=== PATIENT | female | born 1935 | race Caucasian/White ===

== ENCOUNTER → 2017-09-05 11:56 | Outpatient (CLI) | payer MEDICARE, OTHER, SELFPAY ==
[2017-09-05 12:18] LABS: Add Manual Diff / Slide Review NO; Basophils Percent Auto 0.8 % (0-2); Eosinophils Percent Auto 0.6 % (2-4); Hematocrit 44.2 % (36-46); Hemoglobin 15.3 g/dL (12.0-16.0); Lymphocytes Percent Auto 20.6 % (25-40); Mean Corpuscular HGB Conc 34.7 % (30-36); Mean Corpuscular Hemoglobin 31.6 PG (26-34); Monocytes Percent Auto 8.5 % (3-14); Neutrophils Absolute Auto 5700 /uL (3000-5900); Neutrophils Percent Auto 69.5 % (50-75); Platelet Count 250 X10^3/uL (150-400); Red Blood Cell Count 4.86 X10^6/uL (4.0-5.2); Red Cell Distribution Width 12.8 % (11.6-14.8); White Blood Cell Count 8.2 X10^3/uL (4.5-11.0)
[2017-09-05 12:43] LABS: Alanine Aminotransferase 26 IU/L (9-52); Albumin 4.5 g/dL (3.5-5.0); Albumin Globulin Ratio 1.4 (1.0-2.8); Alkaline Phosphatase 81 U/L (38-126); Aspartate Aminotransferase 25 IU/L (14-36); BUN Creatinine Ratio 18.6 (6-22); Bilirubin Total 1.1 mg/dL (0.2-1.3); Blood Urea Nitrogen 13 mg/dL (7-17); Calcium 9.4 mg/dL (8.4-10.2); Carbon Dioxide 31 mmol/L (22-32); Chloride 99 mmol/L (98-107); Cholesterol 203 mg/dL (140-199); Estimated Glomerular Filt Rate > 60.0 mL/min (>60); Globulin 3.2 g/dL (1.7-4.1); Glucose 92 mg/dL (80-110); HDL Cholesterol 79 mg/dL (40-60); HEMOLYSIS 22 (0-50); LDL Cholesterol Calculated 104 mg/dL (<100); Sodium 140 mmol/L (137-145); Total Protein 7.7 g/dL (6.3-8.2); Triglycerides 99 mg/dL (35-150)
[2017-09-05 13:04] LABS: Thyroid Stimulating Hormone 1.56 uIU/mL (0.47-4.68)
== END ==
PROVIDERS: Internal Medicine; PCP Family Medicine; Visit Provider Family Medicine
DX: I10 Essential (primary) hypertension (principal)
CPT/HCPCS: 36415; 80053; 80061; 84443; 85025

== ENCOUNTER → 2017-09-23 14:15 | Outpatient (CLI) | payer MEDICARE, OTHER, SELFPAY ==
--- NOTE | 2017-09-23 | DI.MG.S_ITS ---
BILATERAL DIGITAL SCREENING MAMMOGRAM 3D/2D WITH CAD POST LUMPECTOMY: 09/23/2017 CLINICAL: Routine screening. Personal history of left breast cancer. Comparison is made to exams dated: 09/15/2016 mammogram, 09/11/2015 mammogram, and 09/09/2014 mammogram - [facility]. There are scattered fibroglandular elements in both breasts. Current study was also evaluated with a Computer Aided Detection (CAD) system. There is architectural distortion in the left breast middle depth inferior region seen on the mediolateral oblique view only. No other significant masses, calcifications, or other findings are seen in either breast. IMPRESSION: INCOMPLETE: NEEDS ADDITIONAL IMAGING EVALUATION The architectural distortion in the left breast is indeterminate. Additional views with possible ultrasound are recommended. This exam was interpreted at Station ID: [id number]. NOTE: For mammograms, a report in lay terms will be sent to the patient. Approximately 15% of breast malignancies will not be visualized mammographically. In the management of a palpable breast mass, a negative mammogram must not discourage biopsy of a clinically suspicious lesion. Electronically Signed By: Heather riojas/james:09/23/2017 17:05:03 letter sent: Additional Imaging Needed ACR BI-RADS Category 0: Incomplete [id number]
== END ==
PROVIDERS: PCP Family Medicine; Visit Provider Family Medicine
DX: Z12.31 Encounter for screening mammogram for malignant neoplasm of breast (principal); Z85.3 Personal history of malignant neoplasm of breast
CPT/HCPCS: 77063; 77067

== ENCOUNTER → 2017-10-05 12:35 | Outpatient (CLI) | payer MEDICARE, OTHER, SELFPAY ==
--- NOTE | 2017-10-05 12:52 | DI.MG.S_ITS ---
UNILATERAL LEFT DIGITAL DIAGNOSTIC MAMMOGRAM 3D/2D WITH ADDITIONAL VIEWS POST LUMPECTOMY: 10/05/2017 CLINICAL: Additional evaluation requested from prior study. Comparison is made to exams dated: 09/23/2017 mammogram, 09/15/2016 mammogram, and 09/11/2015 mammogram - [facility]. There are scattered fibroglandular elements in the left breast. Prior mammographic finding is no longer seen in the left breast. No significant masses, calcifications, or other findings are seen in the breast. IMPRESSION: INCOMPLETE: NEEDS ADDITIONAL IMAGING EVALUATION Questioned mammographic finding resolves on further imaging. Recommend confirmation with ultrasound. This exam was interpreted at Station ID: [id number]. NOTE: For mammograms, a report in lay terms will be sent to the patient. Approximately 15% of breast malignancies will not be visualized mammographically. In the management of a palpable breast mass, a negative mammogram must not discourage biopsy of a clinically suspicious lesion. Electronically Signed By: Clyde Martinez M.D. cj/:10/06/2017 08:48:04 ACR BI-RADS Category 0: Incomplete [id number]
--- NOTE | 2017-10-05 12:52 | DI.US.S_ITS ---
ULTRASOUND OF LEFT BREAST: 10/05/2017 CLINICAL: Patient returns today to evaluate a focal asymmetry in the left breast. Comparison is made to exams dated: 10/05/2017 mammogram, 09/23/2017 mammogram, 09/15/2016 mammogram, and 09/11/2015 mammogram - [facility]. Color flow ultrasound of the left breast was performed. Abreu scale images of the real-time examination were reviewed. Prior mammographic finding is no longer seen left breast. IMPRESSION: NEGATIVE There is no sonographic evidence of malignancy. A 1 year screening mammogram is recommended. This exam was interpreted at Station ID: [id number]. Electronically Signed By: Clyde quintanilla/james:10/05/2017 22:47:05 letter sent: Normal Exam Ultrasound BI-RADS: 1 Negative
== END ==
PROVIDERS: PCP Family Medicine; Visit Provider Family Medicine
DX: R92.8 Other abnormal and inconclusive findings on diagnostic imaging of breast (principal)
CPT/HCPCS: 76642; 77065; G0279

== ENCOUNTER 2018-07-12 07:22 | Emergency (ER) | payer MEDICARE, OTHER, SELFPAY ==
[2018-07-12 07:28] VITALS: BP 145/88; PULSE 94; RESP 18; TEMP 37; O2SAT 99; BMI 25.6
--- NOTE | 2018-07-12 08:29 | DI.RAD.S_ITS ---
PROCEDURE: XR HIP W PEL IF DONE RT 2V INDICATIONS: pain TECHNIQUE: AP pelvis with lateral view(s) of the right hip(s). COMPARISON: [facility], , PELVIS W UNILATERAL HIP RIGHT, 09/02/2014, 9:42. [facility], B[place]OL[place], [id number] W PEL IF PERFORMED, 10/04/2016, 16:00. [facility] [place], CR, XR PELVIS W LATERAL HIP LT, 12/02/2016, 13:47. FINDINGS: Bones: No fractures or dislocations. Pelvic ring appears intact. No suspicious bony lesions. Bilateral hip arthroplasties are present. Hardware appears intact. Alignment appears unchanged. Degenerative changes are present within the lower lumbar spine. Soft tissues: The visualized bowel gas pattern is normal. Radiatio soft tissue calcifications are stable. IMPRESSION: Stable appearance of bilateral hip arthroplasties as above. Dictated by: Clarisse Donohue M.D. on 07/12/2018 at 8:56 Approved by: Clarisse Donohue M.D. on 07/12/2018 at 8:59
--- NOTE | 2018-07-12 08:30 | ED.EXTPRO ---
HPI - Extremity Problem General Chief complaint: Extremity Problem,Nontraumatic Stated complaint: Pain in right hip Time Seen by Provider: 07/12/18 07:31 Source: patient and family Mode of arrival: ambulatory Limitations: no limitations History of Present Illness HPI Narrative: Patient complains of right posterior pelvic pain that started 2 days ago. Patient states that 2 days before that, she had vacuum to her whole house, and then the next day, she had gone to 2 birthday open houses, and spent a lot of time on her feet. She states that the end of that day, she was starting to notice a little pain in the right lower back/sciatic area, but when she woke up on Tuesday morning, 2 days ago, she noticed that the pain was quite bad. She states that yesterday, she had a hard time getting around because it hurts so much. Patient has a history of right hip surgery, though she cannot specify whether this was a replacement or repair. She states she has had to have the surgery twice on the hip. She does also note a history of sciatica on that side. Patient denies any fevers. No numbness or tingling. No weakness in the leg. No distinct injury. Patient denies any other complaints at this time. Related Data Home Medications Medication Instructions Recorded Confirmed multivitamin [Multiple Vitamins] 1 tab PO QDAY #0 08/26/10 02/13/18 vitamin E 800 iu PO QDAY #0 08/26/10 02/13/18 calcium carbonate-vitamin D3 1 tab PO QDAY #0 10/19/11 02/13/18 [Oyster Shell Calcium-Vit D3] ascorbic acid (vitamin C) PO QDAY #0 01/20/17 02/13/18 nifedipine [Adalat CC] 30 mg PO DAILY 07/12/18 07/12/18 tolterodine [Detrol LA] 4 mg PO DAILY 07/12/18 07/12/18 Previous Rx's Medication Instructions Recorded aspirin 81 mg PO BID #90 tab 11/23/16 clonazepam 0.5 mg tablet 0.25 mg PO BID #90 tab 10/05/17 hydrochlorothiazide 12.5 mg capsule 12.5 mg PO DAILY PRN #90 cap 05/16/18 prednisone See Rx Instructions .ROUTE 07/12/18 .COMPLEX #21 each Allergies Allergy/AdvReac Type Severity Reaction Status Date / Time ibuprofen [From ADVIL] Allergy Severe heart races Verified 07/12/18 09:52 latex Allergy Mild Blisters Verified 07/12/18 09:52 Review of Systems Constitutional Denies chills, Denies fever(s), Denies lethargy and Denies weakness Eyes Denies change in vision, Denies eye discharge, Denies irritation and Denies loss of vision ENT Ears, Nose, Mouth, and Throat: Denies change in voice, Denies neck pain and Denies sore throat Cardiovascular Denies chest pain, Denies irregular heart rhythm, Denies lightheadedness, Denies palpitations, Denies dyspnea, Denies dyspnea on exertion and Denies orthopnea Respiratory Denies cough, Denies dyspnea, Denies dyspnea on exertion and Denies wheezing Gastrointestinal Gastrointestinal: Denies abdominal pain, Denies change in bowel habits, Denies diarrhea, Denies nausea and Denies vomiting Genitourinary Denies hematuria, Denies flank pain, Denies urinary incontinence and Denies urinary urgency Musculoskeletal Denies neck pain Comments: Right hip, back, and sciatic pain. Integumentary/Breasts Denies pruritus, Denies erythema, Denies rash and Denies wounds Neurologic Denies confusion, Denies loss of vision and Denies weakness Psychiatric Denies anxiety, Denies confusion, Denies depression, Denies homicidal ideation and Denies suicidal ideation Endocrine Denies palpitations Hematologic/Lymphatic Denies easy bruising Allergic/Immunologic Denies wheezing [facility] Medical History Groin rash (Acute) Rash of perineum (Acute) Anxiety (Chronic) Fracture dislocation of shoulder joint (Acute) Osteoarthritis (Acute) Hypertension (Acute) History of breast cancer (Acute) Left ankle sprain (Acute) Essential hypertension (Chronic 12/06/10) Surgical History History of total left hip arthroplasty (Acute) Social History Smoking Status: Former smoker Social History Smoking Status: Former smoker Exam Initial Vital Signs Initial Vital Signs: Vital Signs Temperature 98.6 F 07/12/18 07:28 Pulse Rate 94 H 07/12/18 07:28 Respiratory Rate 18 07/12/18 07:28 Blood Pressure 145/88 H 07/12/18 07:28 Pulse Oximetry 99 07/12/18 07:28 Const General: cooperative and well developed Nutritional Appearance: well nourished Orientation: alert, awake, oriented x3 and not confused [facility] Head: normocephalic and atraumatic Ears: external ears normal Nose: external nose normal and No nasal discharge Face and sinus: face symmetric and No dry mucous membranes Mouth: oral mucosae normal and moist mucous membranes Teeth and gingiva: dentition normal Eyes General: appearance normal, both eyes and all related structures Eyelids: eyelids normal Conjunctivae: conjunctivae normal Sclera: sclerae normal Pupils: PERRL EOM: EOM intact bilaterally Neck Neck: normal visual inspection, trachea midline, No lymphadenopathy, No midline deformity and No JVD Lymphatic: No lymphedema Chest Chest: normal inspection of the chest Resp Effort & Inspection: normal respiratory effort, able to speak in complete sentences, no respiratory distress and no use of accessory muscles Auscultation: clear to auscultation bilaterally, no rales, no rhonchi and no wheezes Cardio Rate: regular rate Rhythm: regular rhythm Heart Sounds: no click, no gallops, no murmurs and no rubs Pulses: normal peripheral pulses GI Inspection: non-distended Palpation: soft, no hepatosplenomegaly, No guarding, No pulsatile mass and No tender Back/Spine/Pelvis Back: No CVA tenderness Cervical Spine: cervical ROM normal and No pain with cervical ROM Thoracic/Lumbar Spine: thoracic and lumbar spine normal to inspection Other: Patient has no tenderness or step-off any level of her spine. She has tenderness over the sciatic joint right just superior to this as well. Skin General: no rashes or lesions noted, No jaundice and No petechiae Neuro General: alert, oriented x3, gait normal and no focal motor deficits Speech: speech normal Extrem General: full ROM, no clubbing, cyanosis or edema, no pedal edema and no calf tenderness Psych Appearance: well kempt Mental Status: mental status grossly normal Attitude: cooperative Thought Content: normal and suicidality Judgment: judgment good Course Course Narrative: Patient was treated symptomatically with Toradol and Decadron, and was sent for x-ray series of her right hip and pelvis. X-rays were unremarkable by Radiology interpretation. Patient was found to be feeling a little better after treatment, and I felt she was stable for discharge home. I have not found any evidence of an emergent condition today. Patient is neurologically intact, and pain is located around the sacroiliac region. We have discussed home management of symptoms, as well as the usual indications for return. Orders Ordered: Discontinued Medications Dexamethasone (Decadron) 10 mg IM NOW ONE Stop: 07/12/18 08:29 Last Admin: 07/12/18 09:01 Dose: 10 mg Ketorolac Tromethamine (Toradol) 30 mg IM NOW ONE Stop: 07/12/18 08:29 Last Admin: 07/12/18 08:57 Dose: 30 mg Vital Signs - 8 hr 07/12/18 07:28 Temperature 98.6 F Pulse Rate 94 H Respiratory Rate 18 Blood Pressure 145/88 H Pulse Oximetry 99 MDM - Extremity (Nontraumatic) Medical Records Attestation: I reviewed the patient's medical records. Imaging Data Hip x-ray: Radiologist's impression: [address] [address] XRay Report Signed Patient: Tiara Angela#: [id number] : 1936Acct:[id number] Age/Sex: 83 / FDate of Service: 07/12/18 Loc: ED Accession Number: [id number] Procedure: XR hip w pel if done RT 2V Ordering Provider: Anamika Velasquez MD PROCEDURE: XR HIP W PEL IF DONE RT 2V INDICATIONS: pain TECHNIQUE: AP pelvis with lateral view(s) of the right hip(s). COMPARISON: [facility], , PELVIS W UNILATERAL HIP RIGHT, 09/02/2014, 9:42. [facility], , [id number] W PEL IF PERFORMED, 10/04/2016, 16:00. [facility], , XR PELVIS W LATERAL HIP LT, 12/02/2016, 13:47. FINDINGS: Bones: No fractures or dislocations. Pelvic ring appears intact. No suspicious bony lesions. Bilateral hip arthroplasties are present. Hardware appears intact. Alignment appears unchanged. Degenerative changes are present within the lower lumbar spine. Soft tissues: The visualized bowel gas pattern is normal. Radiatio soft tissue calcifications are stable. IMPRESSION: Stable appearance of bilateral hip arthroplasties as above. Dictated by: Clarisse Donohue M.D. on 07/12/2018 at 8:56 Approved by: Clarisse Donohue M.D. on 07/12/2018 at 8:59 Discharge Plan Departure Patient Disposition: Home Clinical Impression: Sacro-iliac pain Discharge Date/Time: 07/12/18 10:57 Interventions: ED Discharge Assessment Last Done: 07/12/18 10:57 Instructions: DI Sacroiliac Joint Dysfunction Activity Restrictions/Additional Instructions: Your x-ray series looks good--no problem with your orthopedic hardware. You have most likely strained the connection between the low spine and the pelvic bone. You may take the medications, as directed, to help with the discomfort. Generally, this condition will blow over on its own, given time. Prescriptions: New prednisone 10 mg tablets,dose pack See Rx Instructions .ROUTE .COMPLEX Qty: 21 RF: 0 No Action vitamin E 400 UNIT capsule 800 iu PO QDAY Qty: 0 RF: 0 multivitamin [Multiple Vitamins] 1 EACH tablet 1 tab PO QDAY Qty: 0 RF: 0 calcium carbonate-vitamin D3 [Oyster Shell Calcium-Vit D3] 500 MG/200 IU tablet 1 tab PO QDAY Qty: 0 RF: 0 aspirin 81 MG tablet,delayed release (DR/EC) 81 mg PO BID Qty: 90 RF: 0 ascorbic acid (vitamin C) 500 mg Tablet PO QDAY Qty: 0 RF: 0 hydrochlorothiazide 12.5 mg capsule 12.5 mg PO DAILY PRN (Reason: edema) Qty: 90 RF: 1 clonazepam 0.5 mg tablet 0.25 mg PO BID Qty: 90 RF: 2 tolterodine [Detrol LA] 4 mg capsule,extended release 24hr 4 mg PO DAILY RF: 0 nifedipine [Adalat CC] 30 mg tablet extended release 30 mg PO DAILY RF: 0 Referrals: Kana Bajwa MD [Primary Care Provider] -
--- NOTE | 2018-07-12 08:35 | ED_ITS ---
HPI - Extremity Problem General Chief complaint: Extremity Problem,Nontraumatic Stated complaint: Pain in right hip Time Seen by Provider: 07/12/18 07:31 Source: patient and family Mode of arrival: ambulatory Limitations: no limitations History of Present Illness HPI Narrative: Patient complains of right posterior pelvic pain that started 2 days ago. Patient states that 2 days before that, she had vacuum to her whole house, and then the next day, she had gone to 2 birthday open houses, and spent a lot of time on her feet. She states that the end of that day, she was starting to notice a little pain in the right lower back/sciatic area, but when she woke up on Tuesday morning, 2 days ago, she noticed that the pain was quite bad. She states that yesterday, she had a hard time getting around because it hurts so much. Patient has a history of right hip surgery, though she cannot specify whether this was a replacement or repair. She states she has had to have the surgery twice on the hip. She does also note a history of sciatica on that side. Patient denies any fevers. No numbness or tingling. No weakness in the leg. No distinct injury. Patient denies any other complaints at this time. Related Data Home Medications Medication Instructions Recorded Confirmed multivitamin [Multiple Vitamins] 1 tab PO QDAY #0 08/26/10 02/13/18 vitamin E 800 iu PO QDAY #0 08/26/10 02/13/18 calcium carbonate-vitamin D3 1 tab PO QDAY #0 10/19/11 02/13/18 [Oyster Shell Calcium-Vit D3] ascorbic acid (vitamin C) PO QDAY #0 01/20/17 02/13/18 nifedipine [Adalat CC] 30 mg PO DAILY 07/12/18 07/12/18 tolterodine [Detrol LA] 4 mg PO DAILY 07/12/18 07/12/18 Previous Rx's Medication Instructions Recorded aspirin 81 mg PO BID #90 tab 11/23/16 clonazepam 0.5 mg tablet 0.25 mg PO BID #90 tab 10/05/17 hydrochlorothiazide 12.5 mg capsule 12.5 mg PO DAILY PRN #90 cap 05/16/18 prednisone See Rx Instructions .ROUTE 07/12/18 .COMPLEX #21 each Allergies Allergy/AdvReac Type Severity Reaction Status Date / Time ibuprofen [From ADVIL] Allergy Severe heart races Verified 07/12/18 09:52 latex Allergy Mild Blisters Verified 07/12/18 09:52 Review of Systems Constitutional Denies chills, Denies fever(s), Denies lethargy and Denies weakness Eyes Denies change in vision, Denies eye discharge, Denies irritation and Denies loss of vision ENT Ears, Nose, Mouth, and Throat: Denies change in voice, Denies neck pain and Denies sore throat Cardiovascular Denies chest pain, Denies irregular heart rhythm, Denies lightheadedness, Denies palpitations, Denies dyspnea, Denies dyspnea on exertion and Denies orthopnea Respiratory Denies cough, Denies dyspnea, Denies dyspnea on exertion and Denies wheezing Gastrointestinal Gastrointestinal: Denies abdominal pain, Denies change in bowel habits, Denies diarrhea, Denies nausea and Denies vomiting Genitourinary Denies hematuria, Denies flank pain, Denies urinary incontinence and Denies urinary urgency Musculoskeletal Denies neck pain Comments: Right hip, back, and sciatic pain. Integumentary/Breasts Denies pruritus, Denies erythema, Denies rash and Denies wounds Neurologic Denies confusion, Denies loss of vision and Denies weakness Psychiatric Denies anxiety, Denies confusion, Denies depression, Denies homicidal ideation and Denies suicidal ideation Endocrine Denies palpitations Hematologic/Lymphatic Denies easy bruising Allergic/Immunologic Denies wheezing [facility] Medical History Groin rash (Acute) Rash of perineum (Acute) Anxiety (Chronic) Fracture dislocation of shoulder joint (Acute) Osteoarthritis (Acute) Hypertension (Acute) History of breast cancer (Acute) Left ankle sprain (Acute) Essential hypertension (Chronic 12/06/10) Surgical History History of total left hip arthroplasty (Acute) Social History Smoking Status: Former smoker Social History Smoking Status: Former smoker Exam Initial Vital Signs Initial Vital Signs: Vital Signs Temperature 98.6 F 07/12/18 07:28 Pulse Rate 94 H 07/12/18 07:28 Respiratory Rate 18 07/12/18 07:28 Blood Pressure 145/88 H 07/12/18 07:28 Pulse Oximetry 99 07/12/18 07:28 Const General: cooperative and well developed Nutritional Appearance: well nourished Orientation: alert, awake, oriented x3 and not confused [facility] Head: normocephalic and atraumatic Ears: external ears normal Nose: external nose normal and No nasal discharge Face and sinus: face symmetric and No dry mucous membranes Mouth: oral mucosae normal and moist mucous membranes Teeth and gingiva: dentition normal Eyes General: appearance normal, both eyes and all related structures Eyelids: eyelids normal Conjunctivae: conjunctivae normal Sclera: sclerae normal Pupils: PERRL EOM: EOM intact bilaterally Neck Neck: normal visual inspection, trachea midline, No lymphadenopathy, No midline deformity and No JVD Lymphatic: No lymphedema Chest Chest: normal inspection of the chest Resp Effort & Inspection: normal respiratory effort, able to speak in complete sentences, no respiratory distress and no use of accessory muscles Auscultation: clear to auscultation bilaterally, no rales, no rhonchi and no wheezes Cardio Rate: regular rate Rhythm: regular rhythm Heart Sounds: no click, no gallops, no murmurs and no rubs Pulses: normal peripheral pulses GI Inspection: non-distended Palpation: soft, no hepatosplenomegaly, No guarding, No pulsatile mass and No tender Back/Spine/Pelvis Back: No CVA tenderness Cervical Spine: cervical ROM normal and No pain with cervical ROM Thoracic/Lumbar Spine: thoracic and lumbar spine normal to inspection Other: Patient has no tenderness or step-off any level of her spine. She has tenderness over the sciatic joint right just superior to this as well. Skin General: no rashes or lesions noted, No jaundice and No petechiae Neuro General: alert, oriented x3, gait normal and no focal motor deficits Speech: speech normal Extrem General: full ROM, no clubbing, cyanosis or edema, no pedal edema and no calf tenderness Psych Appearance: well kempt Mental Status: mental status grossly normal Attitude: cooperative Thought Content: normal and suicidality Judgment: judgment good Course Course Narrative: Patient was treated symptomatically with Toradol and Decadron, and was sent for x-ray series of her right hip and pelvis. X-rays were unremarkable by Radiology interpretation. Patient was found to be feeling a little better after treatment, and I felt she was stable for discharge home. I have not found any evidence of an emergent condition today. Patient is neurologically intact, and pain is located around the sacroiliac region. We have discussed home management of symptoms, as well as the usual indications for return. Orders Ordered: Discontinued Medications Dexamethasone (Decadron) 10 mg IM NOW ONE Stop: 07/12/18 08:29 Last Admin: 07/12/18 09:01 Dose: 10 mg Ketorolac Tromethamine (Toradol) 30 mg IM NOW ONE Stop: 07/12/18 08:29 Last Admin: 07/12/18 08:57 Dose: 30 mg Vital Signs - 8 hr 07/12/18 07:28 Temperature 98.6 F Pulse Rate 94 H Respiratory Rate 18 Blood Pressure 145/88 H Pulse Oximetry 99 MDM - Extremity (Nontraumatic) Medical Records Attestation: I reviewed the patient's medical records. Imaging Data Hip x-ray: Radiologist's impression: [address] [address] XRay Report Signed Patient: Tiara Angela#: [id number] : 1936Acct:[id number] Age/Sex: 83 / FDate of Service: 07/12/18 Loc: ED Accession Number: [id number] Procedure: XR hip w pel if done RT 2V Ordering Provider: Anamika Velasquez MD PROCEDURE: XR HIP W PEL IF DONE RT 2V INDICATIONS: pain TECHNIQUE: AP pelvis with lateral view(s) of the right hip(s). COMPARISON: [facility], , PELVIS W UNILATERAL HIP RIGHT, 09/02/2014, 9:42. [facility], , [id number] W PEL IF PERFORMED, 10/04/2016, 16:00. [facility], , XR PELVIS W LATERAL HIP LT, 12/02/2016, 13:47. FINDINGS: Bones: No fractures or dislocations. Pelvic ring appears intact. No suspicious bony lesions. Bilateral hip arthroplasties are present. Hardware appears intact. Alignment appears unchanged. Degenerative changes are present within the lower lumbar spine. Soft tissues: The visualized bowel gas pattern is normal. Radiatio soft tissue calcifications are stable. IMPRESSION: Stable appearance of bilateral hip arthroplasties as above. Dictated by: Clarisse Donohue M.D. on 07/12/2018 at 8:56 Approved by: Clarisse Donohue M.D. on 07/12/2018 at 8:59 Discharge Plan Departure Patient Disposition: Home Clinical Impression: Sacro-iliac pain Discharge Date/Time: 07/12/18 10:57 Interventions: ED Discharge Assessment Last Done: 07/12/18 10:57 Instructions: DI Sacroiliac Joint Dysfunction Activity Restrictions/Additional Instructions: Your x-ray series looks good--no problem with your orthopedic hardware. You have most likely strained the connection between the low spine and the pelvic bone. You may take the medications, as directed, to help with the discomfort. Generally, this condition will blow over on its own, given time. Prescriptions: New prednisone 10 mg tablets,dose pack See Rx Instructions .ROUTE .COMPLEX Qty: 21 RF: 0 No Action vitamin E 400 UNIT capsule 800 iu PO QDAY Qty: 0 RF: 0 multivitamin [Multiple Vitamins] 1 EACH tablet 1 tab PO QDAY Qty: 0 RF: 0 calcium carbonate-vitamin D3 [Oyster Shell Calcium-Vit D3] 500 MG/200 IU tablet 1 tab PO QDAY Qty: 0 RF: 0 aspirin 81 MG tablet,delayed release (DR/EC) 81 mg PO BID Qty: 90 RF: 0 ascorbic acid (vitamin C) 500 mg Tablet PO QDAY Qty: 0 RF: 0 hydrochlorothiazide 12.5 mg capsule 12.5 mg PO DAILY PRN (Reason: edema) Qty: 90 RF: 1 clonazepam 0.5 mg tablet 0.25 mg PO BID Qty: 90 RF: 2 tolterodine [Detrol LA] 4 mg capsule,extended release 24hr 4 mg PO DAILY RF: 0 nifedipine [Adalat CC] 30 mg tablet extended release 30 mg PO DAILY RF: 0 Referrals: Kana Bajwa MD [Primary Care Provider] -
[2018-07-12] MEDS: KETOROLAC 60 MG/2 ML VIAL 30 MG IM (08:57)
[2018-07-12] MEDS: DEXAMETHASONE 10 MG/ML VIAL IM (09:01)
[2018-07-12 10:00] VITALS: BP 138/68; PULSE 87; RESP 14; TEMP 37; O2SAT 97
[2018-07-12 10:38] VITALS: BP 123/63; PULSE 93; RESP 20; O2SAT 100
--- NOTE | 2018-07-17 18:04 | CM.SWNOTE ---
Follow up note Routine emergency room follow up call. No answer, but name identified on voice mail. Informed that it was the ED with a follow up phone call. Tried the cell phone also, but no answer.
== END 2018-07-12 10:57 | disposition home or self-care (01) ==
PROVIDERS: Emergency Provider Emergency Medicine; PCP Family Medicine
DX: M53.3 Sacrococcygeal disorders, not elsewhere classified (principal)
CPT/HCPCS: 73502; 99283; J1100; J1885

== ENCOUNTER → 2018-07-14 09:11 | Outpatient (CLI) | payer MEDICARE, OTHER, SELFPAY ==
[2018-07-14 10:06] LABS: Add Manual Diff / Slide Review NO; Basophils Absolute Auto 0 /uL (0-100); Basophils Percent Auto 0.4 % (0-2); Eosinophils Absolute Auto 0 /uL (0-450); Eosinophils Percent Auto 0.5 % (2-4); Hematocrit 42.2 % (36-46); Hemoglobin 14.3 g/dL (12.0-16.0); Lymphocytes Absolute Auto 2800 /uL (1100-4500); Lymphocytes Percent Auto 31.3 % (25-40); Mean Corpuscular Hemoglobin 31.3 PG (26-34); Monocytes Absolute Auto 900 /uL (0-900); Monocytes Percent Auto 10.3 % (3-14); Neutrophils Absolute Auto 5100 /uL (1500-7000); Neutrophils Percent Auto 57.5 % (50-75); Platelet Count 288 X10^3/uL (150-400); Red Blood Cell Count 4.58 X10^6/uL (4.0-5.2); Red Cell Distribution Width 13.8 % (11.6-14.8); White Blood Cell Count 8.8 X10^3/uL (4.5-11.0)
[2018-07-14 10:13] LABS: Alanine Aminotransferase 17 IU/L (9-52); Albumin 4.2 g/dL (3.5-5.0); Albumin Globulin Ratio 1.3 (1.0-2.8); Alkaline Phosphatase 69 U/L (38-126); Aspartate Aminotransferase 22 IU/L (14-36); Bilirubin Total 0.6 mg/dL (0.2-1.3); Blood Urea Nitrogen 21 mg/dL (7-17); Calcium 9.2 mg/dL (8.4-10.2); Carbon Dioxide 30 mmol/L (22-32); Chloride 100 mmol/L (98-107); Cholesterol 178 mg/dL (140-199); Estimated Glomerular Filt Rate > 60.0 mL/min (>60); Globulin 3.2 g/dL (1.7-4.1); Glucose 85 mg/dL (80-110); HDL Cholesterol 94 mg/dL (40-60); HEMOLYSIS < 15 (0-50); LDL Cholesterol Calculated 70 mg/dL (<100); Potassium 3.2 mmol/L (3.4-5.1); Sodium 141 mmol/L (137-145); Total Protein 7.4 g/dL (6.3-8.2); Triglycerides 71 mg/dL (35-150)
== END ==
PROVIDERS: PCP Family Medicine; Visit Provider Family Medicine
DX: I10 Essential (primary) hypertension (principal); Z00.00 Encounter for general adult medical examination without abnormal findings; Z13.6 Encounter for screening for cardiovascular disorders
CPT/HCPCS: 36415; 80053; 80061; 85025

== ENCOUNTER → 2018-07-24 15:37 | Outpatient (CLI) | payer MEDICARE, OTHER, SELFPAY ==
--- NOTE | 2018-07-24 15:41 | DI.MRI.S_ITS ---
PROCEDURE: MR LUMBAR SPINE WO CON INDICATIONS: Right sided low back/SI joint pain TECHNIQUE: Noncontrast sagittal T1 spin echo and T2 fast echo, sagittal STIR, axial T1 and T2 fast spin echo through the lumbar spine. Axial and oblique coronal T1 spin echo and STIR through the sacrum. In cases with scoliosis, additional coronal T2 fast spin echo may be performed. COMPARISON: [facility], , L-SPINE 2-3 VIEWS, 10/04/2016, 16:00. FINDINGS: Image quality: Excellent. Alignment and Curvature: There is mild L4-L5 anterolisthesis secondary to facet hypertrophy. Bone Marrow: Marrow is of normal overall signal. No acute vertebral body compression fractures. No sacral fractures. Spinal Cord: Conus medullaris terminates at the L1 level. Visualized cord demonstrates normal signal and size. Paraspinous Soft Tissues: No paravertebral masses. L1-L2: Loss of the signal. No central stenosis. No neural foraminal narrowing. No neural impingement. L2-L3: Loss of disc signal. Mild, diffuse disc bulge. No central stenosis. No neural foraminal narrowing. No neural impingement. L3-L4: Loss of the signal. Mild, diffuse disc bulge. Moderate facet and moderate ligamentum flavum hypertrophy. Moderate narrowing of the central canal. Moderate to severe right and mild left neural foraminal narrowing with slight compression of the exiting left L3 nerve root. L4-L5: Loss of disc signal and height. Mild, diffuse disc bulge. Severe bilateral facet hypertrophy. Moderate narrowing of the central canal. Mild to moderate bilateral neural foraminal narrowing. No neural impingement. L5-S1: Disc has a normal appearance. Moderate bilateral facet hypertrophy. No central stenosis. No neural foraminal narrowing. No neural impingement. Sacrum: Sacral neural foramina appear normal throughout. Superior to the piriformis muscles, the pre-plexal structures appear normal, including the lumbosacral trunk and S1 root. Just anterior to the piriformis muscles, the sacral plexus proper demonstrates normal morphology (lumbosacral trunk, S1 to S3 nerve roots). Inferior to the piriformis muscles, the sciatic nerves appear normal. Small right S3 Tarlov cyst. IMPRESSION: 1. Grade 1 L4-L5 degenerative spondylolisthesis. 2. Multilevel degenerative disc disease. 3. Multilevel facet arthropathy. 4. Moderate L3-L4 and L4-L5 central canal narrowing. 5. Moderate to severe right and mild left L3-L4 neural foraminal narrowing. Mild to moderate bilateral L4-L5 neural foraminal narrowing. 6. Slight compression of the exiting right L3 nerve root secondary to right L3-L4 neural foraminal narrowing. Please correlate with clinical data. Dictated by: Jessica Rowe MD, PhD on 07/24/2018 at 17:20 Approved by: Jessica Rowe MD, PhD on 07/24/2018 at 17:25
== END ==
PROVIDERS: PCP Family Medicine; Visit Provider Family Medicine
DX: M53.3 Sacrococcygeal disorders, not elsewhere classified (principal); M54.5 Low back pain; M43.16 Spondylolisthesis, lumbar region; M51.36 Other intervertebral disc degeneration, lumbar region; M48.061 Spinal stenosis, lumbar region without neurogenic claudication; M47.816 Spondylosis without myelopathy or radiculopathy, lumbar region
CPT/HCPCS: 72148

== ENCOUNTER → 2018-10-11 11:17 | Outpatient (CLI) | payer MEDICARE, OTHER, SELFPAY ==
--- NOTE | 2018-10-11 | DI.MG.S_ITS ---
BILATERAL DIGITAL SCREENING MAMMOGRAM 3D/2D WITH CAD: 10/11/2018 CLINICAL: Routine screening. Personal history of left breast cancer. Post left lumpectomy and radiation therapy. Comparison is made to exams dated: 10/05/2017 mammogram, 09/23/2017 mammogram, 09/15/2016 mammogram, and 09/11/2015 mammogram - [facility]. There are scattered fibroglandular elements in both breasts. Current study was also evaluated with a Computer Aided Detection (CAD) system. There are benign post operative findings in the left breast. No significant masses, calcifications, or other findings are seen in either breast. There has been no significant interval change. IMPRESSION: There is no mammographic evidence of malignancy. A 1 year screening mammogram is recommended. This exam was interpreted at Station ID: [id number]. NOTE: For mammograms, a report in lay terms will be sent to the patient. Approximately 15% of breast malignancies will not be visualized mammographically. In the management of a palpable breast mass, a negative mammogram must not discourage biopsy of a clinically suspicious lesion. Electronically Signed By: Tamika aranda/james:10/11/2018 11:53:41 letter sent: Normal Exam ACR BI-RADS Category 2: Benign Finding(s) 3342F
== END ==
PROVIDERS: PCP Family Medicine; Visit Provider Family Medicine
DX: Z12.31 Encounter for screening mammogram for malignant neoplasm of breast (principal); Z85.3 Personal history of malignant neoplasm of breast
CPT/HCPCS: 77063; 77067

== ENCOUNTER → 2019-04-19 11:29 | Outpatient (CLI) | payer MEDICARE, OTHER, SELFPAY ==
--- NOTE | 2019-04-19 11:31 | DI.US.S_ITS ---
PROCEDURE: US PELVIC COMPLETE INDICATIONS: PROBLEMS WITH URINATING AND URINARY RETENTION TECHNIQUE: Real-time scanning was performed of the pelvic organs, with image documentation. Additional endovaginal scanning was necessary due to incomplete visualization of the adnexal and endometrial structures by transabdominal scanning. COMPARISON: None. FINDINGS: Transabdominal scanning: Limited scanning through the kidneys shows no hydronephrosis. No pathologic free abdominal or pelvic fluid. Endovaginal scanning: Uterus: Surgically absent. Ovaries: The right ovary is not seen. The left ovary measures 1.6 x 1.2 x 0.7 cm. IMPRESSION: No significant abnormality is seen, status post hysterectomy. Dictated by: Bruce Coffman M.D. on 04/19/2019 at 13:02 Approved by: Bruce Coffman M.D. on 04/19/2019 at 13:03
== END ==
PROVIDERS: PCP Family Medicine; Referring Provider Family Medicine; Visit Provider Family Medicine
DX: R33.9 Retention of urine, unspecified (principal); Z90.710 Acquired absence of both cervix and uterus
CPT/HCPCS: 76830; 76856

== ENCOUNTER → 2019-08-31 09:36 | Outpatient (CLI) | payer MEDICARE, OTHER, SELFPAY ==
[2019-08-31 12:39] LABS: Add Manual Diff / Slide Review NO; Basophils Absolute Auto 0 /uL (0-100); Basophils Percent Auto 0.5 % (0-2); Eosinophils Absolute Auto 0 /uL (0-450); Eosinophils Percent Auto 0.9 % (2-4); Hematocrit 41.1 % (36-46); Hemoglobin 14.4 g/dL (12.0-16.0); Lymphocytes Absolute Auto 1500 /uL (1100-4500); Mean Corpuscular Hemoglobin 32.1 PG (26-34); Mean Corpuscular Volume 91.7 fL (80-100); Monocytes Absolute Auto 500 /uL (0-900); Monocytes Percent Auto 9.3 % (3-14); Neutrophils Absolute Auto 3000 /uL (1500-7000); Neutrophils Percent Auto 59.3 % (50-75); Platelet Count 257 X10^3/uL (150-400); Red Blood Cell Count 4.48 X10^6/uL (4.0-5.2); Red Cell Distribution Width 13.1 % (11.6-14.8); White Blood Cell Count 5.1 X10^3/uL (4.5-11.0)
[2019-08-31 13:17] LABS: Alanine Aminotransferase 17 IU/L (<35); Albumin 4.5 g/dL (3.5-5.0); Albumin Globulin Ratio 1.5 (1.0-2.8); Alkaline Phosphatase 75 U/L (38-126); Aspartate Aminotransferase 30 IU/L (14-36); BUN Creatinine Ratio 20.9 (6-22); Bilirubin Total 0.8 mg/dL (0.2-1.3); Blood Urea Nitrogen 14 mg/dL (7-17); Calcium 9.8 mg/dL (8.4-10.2); Carbon Dioxide 27 mmol/L (22-32); Chloride 104 mmol/L (98-107); Cholesterol 196 mg/dL (140-199); Estimated Glomerular Filt Rate > 60.0 mL/min (>60); Glucose 88 mg/dL (80-110); HDL Cholesterol 95 mg/dL (40-60); HEMOLYSIS < 15 (0-50); LDL Cholesterol Calculated 90 mg/dL (<100); Potassium 4.3 mmol/L (3.4-5.1); Sodium 141 mmol/L (137-145); Total Protein 7.5 g/dL (6.3-8.2); Triglycerides 53 mg/dL (35-150)
== END ==
PROVIDERS: PCP Family Medicine; Referring Provider Family Medicine; Visit Provider Family Medicine
DX: Z00.00 Encounter for general adult medical examination without abnormal findings (principal); I10 Essential (primary) hypertension
CPT/HCPCS: 36415; 80053; 80061; 85025

== ENCOUNTER → 2019-10-25 11:05 | Outpatient (CLI) | payer MEDICARE, OTHER, SELFPAY ==
--- NOTE | 2019-10-25 11:08 | DI.MG.S_ITS ---
BILATERAL DIGITAL SCREENING MAMMOGRAM 3D/2D WITH CAD POST LUMPECTOMY: 10/25/2019 CLINICAL: Routine screening. Personal history of left breast cancer. Comparison is made to exams dated: 10/11/2018 mammogram, 09/23/2017 mammogram, 09/15/2016 mammogram, 09/11/2015 mammogram, and 09/09/2014 mammogram - [facility]. There are scattered fibroglandular elements in both breasts. Current study was also evaluated with a Computer Aided Detection (CAD) system. There are benign post operative findings in the left breast. No significant masses, calcifications, or other findings are seen in either breast. There has been no significant interval change. IMPRESSION: BENIGN There is no mammographic evidence of malignancy. A 1 year screening mammogram is recommended. This exam was interpreted at Station ID: [id number]. NOTE: For mammograms, a report in lay terms will be sent to the patient. Approximately 15% of breast malignancies will not be visualized mammographically. In the management of a palpable breast mass, a negative mammogram must not discourage biopsy of a clinically suspicious lesion. Electronically Signed By: Dwaine calloway/james:10/25/2019 15:17:26 letter sent: Normal Exam ACR BI-RADS Category 2: Benign Finding(s) 3342F
== END ==
PROVIDERS: PCP Family Medicine; Referring Provider Family Medicine; Visit Provider Family Medicine
DX: Z12.31 Encounter for screening mammogram for malignant neoplasm of breast (principal); Z85.3 Personal history of malignant neoplasm of breast
CPT/HCPCS: 77063; 77067

== ENCOUNTER → 2020-02-21 10:16 | Outpatient (CLI) | payer MEDICARE, OTHER, SELFPAY ==
[2020-02-21 11:16] LABS: Creatinine Urine Random 93.4 mg/dL
[2020-02-21 11:18] LABS: Alanine Aminotransferase 17 IU/L (<35); Albumin 4.6 g/dL (3.5-5.0); Albumin Globulin Ratio 1.2 (1.0-2.8); Alkaline Phosphatase 75 U/L (38-126); Aspartate Aminotransferase 30 IU/L (14-36); BUN Creatinine Ratio 18.3 (6-22); Bilirubin Total 0.6 mg/dL (0.2-1.3); Blood Urea Nitrogen 13 mg/dL (7-17); Calcium 9.8 mg/dL (8.4-10.2); Carbon Dioxide 32 mmol/L (22-32); Chloride 103 mmol/L (98-107); Cholesterol 218 mg/dL (140-199); Estimated Glomerular Filt Rate > 60.0 mL/min (>60); Globulin 3.7 g/dL (1.7-4.1); Glucose 107 mg/dL (80-110); HDL Cholesterol 97 mg/dL (40-60); HEMOLYSIS < 15 (0-50); LDL Cholesterol Calculated 106 mg/dL (<100); Potassium 3.9 mmol/L (3.4-5.1); Sodium 139 mmol/L (137-145); Total Protein 8.3 g/dL (6.3-8.2); Triglycerides 76 mg/dL (35-150)
[2020-02-21 11:19] LABS: Microalbumi Creatinin Ratio Ur 50.3 ug/mg CR (<30); Microalbumin Urine Random 4.7 mg/dL (0-1.6)
== END ==
PROVIDERS: PCP Family Medicine; Referring Provider Family Medicine; Visit Provider Family Medicine
DX: I10 Essential (primary) hypertension (principal)
CPT/HCPCS: 36415; 80053; 80061; 82043; 82570

== ENCOUNTER → 2020-03-27 16:00 | Outpatient (CLI) | payer MEDICARE, OTHER, SELFPAY ==
--- NOTE | 2020-03-27 16:05 | DI.RAD.S_ITS ---
PROCEDURE: XR KNEE RT 3V INDICATIONS: right knee pain TECHNIQUE: 3 views of the knee were acquired. COMPARISON: None. FINDINGS: Bones: No fractures or dislocations. No suspicious bony lesions. Tricompartmental knee joint space narrowing with periarticular osteophyte formation. Soft tissues: Small joint effusion. No suspicious soft tissue calcifications. Chondrocalcinosis. Vascular calcifications indicate atherosclerosis. IMPRESSION: 1. Mild tricompartmental knee joint degeneration. 2. Chondrocalcinosis. Differential diagnosis includes but is not limited to hemochromatosis, hyperparathyroidism and CPPD. Dictated by: Chandler Rendon [facility] Interpreted: Christian Oakes MD on 03/27/2020 at 16:57 Approved by: Christian Oakes M.D. on 03/31/2020 at 16:36
== END ==
PROVIDERS: PCP Family Medicine; Referring Provider Registered Nurse; Visit Provider Registered Nurse
DX: M25.561 Pain in right knee (principal); M17.11 Unilateral primary osteoarthritis, right knee; M11.261 Other chondrocalcinosis, right knee
CPT/HCPCS: 73562

== ENCOUNTER → 2020-04-10 14:38 | Outpatient (CLI) | payer MEDICARE, SELFPAY ==
[2020-04-10] MEDS: COVID-19 VACC #1, MRNA(MOD) 100 MCG/0.5 ML VIAL IM (14:43)
== END ==
PROVIDERS: PCP Family Medicine; Visit Provider Internal Medicine
DX: Z23 Encounter for immunization (principal)
CPT/HCPCS: 0011A; 91301

== ENCOUNTER → 2020-05-08 14:37 | Outpatient (CLI) | payer MEDICARE, SELFPAY ==
[2020-05-08] MEDS: COVID-19 VACC #2, MRNA(MOD) 100 MCG/0.5 ML VIAL IM (14:47)
== END ==
PROVIDERS: PCP Family Medicine; Visit Provider Internal Medicine
DX: Z23 Encounter for immunization (principal)
CPT/HCPCS: 0012A; 91301

== ENCOUNTER → 2020-10-28 11:10 | Outpatient (CLI) | payer MEDICARE, SELFPAY ==
--- NOTE | 2020-10-28 | DI.MG.S_ITS ---
BILATERAL DIGITAL SCREENING MAMMOGRAM 3D/2D WITH CAD: 10/28/2020 CLINICAL: Routine screening. Breast cancer. Comparison is made to exams dated: 10/25/2019 mammogram, 10/11/2018 mammogram, 10/05/2017 mammogram, 09/23/2017 mammogram, 09/15/2016 mammogram, and 09/11/2015 mammogram - [facility]. There are scattered fibroglandular elements in both breasts. Current study was also evaluated with a Computer Aided Detection (CAD) system. There are benign post operative findings in the left breast. No significant masses, calcifications, or other findings are seen in either breast. There has been no significant interval change. IMPRESSION: BENIGN There is no mammographic evidence of malignancy. A 1 year screening mammogram is recommended. This exam was interpreted at Station ID: [id number]. NOTE: For mammograms, a report in lay terms will be sent to the patient. Approximately 15% of breast malignancies will not be visualized mammographically. In the management of a palpable breast mass, a negative mammogram must not discourage biopsy of a clinically suspicious lesion. Electronically Signed By: Dwaine calloway/james:10/28/2020 11:36:13 letter sent: Normal Exam ACR BI-RADS Category 2: Benign Finding(s) 3342F
== END ==
PROVIDERS: PCP Family Medicine; Referring Provider Family Medicine; Visit Provider Family Medicine
DX: Z12.31 Encounter for screening mammogram for malignant neoplasm of breast (principal); Z85.3 Personal history of malignant neoplasm of breast
CPT/HCPCS: 77063; 77067

== ENCOUNTER → 2021-01-19 13:58 | Outpatient (CLI) | payer MEDICARE, OTHER, SELFPAY ==
--- NOTE | 2021-01-19 13:59 | DI.RAD.S_ITS ---
PROCEDURE: XR HIP W PEL IF DONE RT 2V INDICATIONS: chronic right hip pain TECHNIQUE: AP pelvis with lateral view(s) of the right hip(s). COMPARISON: [facility], , XR HIP W PEL IF DONE RT 2V, 07/12/2018, 8:33. FINDINGS: Bones: Unchanged alignment of bilateral hip arthroplasties with long femoral stem component. Hardware appears intact. No evidence of hardware loosening or failure. Lumbar spondylosis and facet disease as before. Soft tissues: Scattered vascular and dystrophic calcifications seen bilaterally. Pubic symphysis chondrocalcinosis. IMPRESSION: Unchanged alignment of bilateral hip arthroplasties. Dictated by: Acosta Munoz M.D. on 01/19/2021 at 16:02 Approved by: Acosta Munoz M.D. on 01/19/2021 at 16:04
== END ==
PROVIDERS: PCP Family Medicine; Referring Provider Family Medicine; Visit Provider Family Medicine
DX: M25.551 Pain in right hip (principal); M16.0 Bilateral primary osteoarthritis of hip; G89.29 Other chronic pain
CPT/HCPCS: 73502

== ENCOUNTER → 2021-02-23 09:27 | Outpatient (CLI) | payer MEDICARE, OTHER, SELFPAY ==
[2021-02-23 14:07] LABS: Alanine Aminotransferase 16 IU/L (<35); Albumin 4.4 g/dL (3.5-5.0); Albumin Globulin Ratio 1.5 (1.0-2.8); Alkaline Phosphatase 64 U/L (38-126); Aspartate Aminotransferase 28 IU/L (14-36); BUN Creatinine Ratio 18.3 (6-22); Bilirubin Total 0.6 mg/dL (0.2-1.3); Blood Urea Nitrogen 13 mg/dL (7-17); Calcium 9.6 mg/dL (8.4-10.2); Carbon Dioxide 27 mmol/L (22-32); Chloride 106 mmol/L (98-107); Cholesterol 203 mg/dL (140-199); Estimated Glomerular Filt Rate > 60.0 mL/min (>60); Glucose 89 mg/dL (80-110); HEMOLYSIS < 15 (0-50); Potassium 3.9 mmol/L (3.4-5.1); Sodium 141 mmol/L (137-145); Total Protein 7.4 g/dL (6.3-8.2); Triglycerides 42 mg/dL (35-150)
[2021-02-23 14:25] LABS: HDL Cholesterol 113 mg/dL (40-60); LDL Cholesterol Calculated 82 mg/dL (<100)
[2021-02-23 16:51] LABS: Creatinine Urine Random 15.7 mg/dL
[2021-02-23 16:52] LABS: Microalbumi Creatinin Ratio Ur 38.2 ug/mg CR (<30); Microalbumin Urine Random 0.6 mg/dL (0-1.6)
== END ==
PROVIDERS: PCP Family Medicine; Referring Provider Family Medicine; Visit Provider Family Medicine
DX: E78.5 Hyperlipidemia, unspecified (principal); I10 Essential (primary) hypertension
CPT/HCPCS: 36415; 80053; 80061; 82043; 82570

== ENCOUNTER → 2021-06-18 09:17 | Outpatient (CLI) | payer MEDICARE, OTHER, SELFPAY ==
--- NOTE | 2021-06-18 09:22 | DI.RAD.S_ITS ---
PROCEDURE: XR KNEE LT 3V INDICATIONS: chronic left knee pain TECHNIQUE: Three views of the left knee were performed. There are tricompartmental degenerative changes with medial joint space narrowing and tricompartmental osteophytes. There are calcifications within the joint space consistent with chondrocalcinosis. COMPARISON: [facility], , XR KNEE RT 3V, 03/27/2020, 16:06. FINDINGS: Bones: No fractures or dislocations. No suspicious bony lesions. Soft tissues: No joint effusion. No suspicious soft tissue calcifications. Vasculature demonstrates atherosclerotic calcifications. IMPRESSION: 1. Tricompartmental degenerative changes consistent with osteoarthritis. 2. Chondrocalcinosis. Differential diagnosis includes but is not limited to hemochromatosis, hyperparathyroidism, and CPPD. Dictated by: Axel Teague M.D. on 06/18/2021 at 12:33 Approved by: Axel Teague M.D. on 06/18/2021 at 12:35
== END ==
PROVIDERS: PCP Family Medicine; Referring Provider Family Medicine; Visit Provider Family Medicine
DX: M25.562 Pain in left knee (principal); M11.262 Other chondrocalcinosis, left knee; M17.11 Unilateral primary osteoarthritis, right knee; G89.29 Other chronic pain
CPT/HCPCS: 73562

== ENCOUNTER → 2021-11-05 12:53 | Outpatient (CLI) | payer MEDICARE, OTHER, SELFPAY ==
--- NOTE | 2021-11-05 | DI.MG.S_ITS ---
BILATERAL DIGITAL SCREENING MAMMOGRAM 3D/2D WITH CAD: 11/05/2021 CLINICAL: Routine screening. Personal history of left breast cancer. Comparison is made to exams dated: 10/28/2020 mammogram, 10/25/2019 mammogram, and 10/11/2018 mammogram - [facility]. There are scattered areas of fibroglandular density in both breasts (category b / 25%-50% glandular tissue). Current study was also evaluated with a Computer Aided Detection (CAD) system. There are benign vascular calcifications in both breasts. There also are benign post operative findings in the left breast. No significant masses, calcifications, or other findings are seen in either breast. There has been no significant interval change. IMPRESSION: BENIGN There is no mammographic evidence of malignancy. A 1 year screening mammogram is recommended. This exam was interpreted at Station ID: [id number]. NOTE: For mammograms, a report in lay terms will be sent to the patient. Approximately 15% of breast malignancies will not be visualized mammographically. In the management of a palpable breast mass, a negative mammogram must not discourage biopsy of a clinically suspicious lesion. Electronically Signed By: Heather riojas/james:11/05/2021 15:09:36 letter sent: Normal Exam ACR BI-RADS Category 2: Benign Finding(s) [id number]
== END ==
PROVIDERS: PCP Family Medicine; Referring Provider Family Medicine; Visit Provider Family Medicine
DX: Z12.31 Encounter for screening mammogram for malignant neoplasm of breast (principal); Z85.3 Personal history of malignant neoplasm of breast
CPT/HCPCS: 77063; 77067

== ENCOUNTER → 2022-05-06 16:02 | Outpatient (CLI) | payer MEDICARE, OTHER, SELFPAY ==
--- NOTE | 2022-05-06 16:04 | DI.RAD.S_ITS ---
PROCEDURE: XR SHOULDER RT MIN 2V INDICATIONS: right shoulder pain TECHNIQUE: 3 views of the shoulder were acquired. COMPARISON: [facility], , SHOULDER 1 VIEW RIGHT, 01/03/2015, 14:39. FINDINGS: Bones: Acromioclavicular degenerative changes. Old healed proximal humeral fracture. Right lung apex clear Soft tissues: No suspicious soft tissue calcifications. IMPRESSION: Degenerative changes and old healed proximal humeral fracture Approved by: Shahid Cottrell M.D. on 05/06/2022 at 18:56
[2022-05-06 17:10] LABS: Add Manual Diff / Slide Review NO; Basophils Absolute Auto 0 /uL (0-100); Basophils Percent Auto 0.4 % (0-2); Eosinophils Absolute Auto 100 /uL (0-450); Eosinophils Percent Auto 1.7 % (2-4); Hematocrit 43.6 % (36-46); Hemoglobin 14.8 g/dL (12.0-16.0); Lymphocytes Absolute Auto 1900 /uL (1100-4500); Lymphocytes Percent Auto 34.4 % (25-40); Mean Corpuscular HGB Conc 34.1 % (30-36); Mean Corpuscular Hemoglobin 31.1 PG (26-34); Mean Corpuscular Volume 91.2 fL (80-100); Monocytes Absolute Auto 500 /uL (0-900); Monocytes Percent Auto 9.6 % (3-14); Neutrophils Absolute Auto 2900 /uL (1500-7000); Neutrophils Percent Auto 53.9 % (50-75); Platelet Count 272 X10^3/uL (150-400); Red Blood Cell Count 4.78 X10^6/uL (4.0-5.2); Red Cell Distribution Width 13.1 % (11.6-14.8); White Blood Cell Count 5.4 X10^3/uL (4.5-11.0)
[2022-05-06 17:51] LABS: Alanine Aminotransferase 22 IU/L (<35); Albumin 4.7 g/dL (3.5-5.0); Albumin Globulin Ratio 1.2 (1.0-2.8); Alkaline Phosphatase 89 U/L (38-126); Aspartate Aminotransferase 32 IU/L (14-36); BUN Creatinine Ratio 15.7 (6-22); Blood Urea Nitrogen 11 mg/dL (7-17); Calcium 9.6 mg/dL (8.4-10.2); Carbon Dioxide 28 mmol/L (22-32); Chloride 103 mmol/L (98-107); Cholesterol 224 mg/dL (140-199); Estimated Glomerular Filt Rate > 60 mL/min (>60); Globulin 3.8 g/dL (1.7-4.1); Glucose 90 mg/dL (80-110); HDL Cholesterol 106 mg/dL (40-60); HEMOLYSIS < 15 (0-50); LDL Cholesterol Calculated 103 mg/dL (<100); Potassium 3.6 mmol/L (3.4-5.1); Sodium 140 mmol/L (137-145); Total Protein 8.5 g/dL (6.3-8.2); Triglycerides 76 mg/dL (35-150)
[2022-05-06 18:23] LABS: Creatinine Urine Random 33.3 mg/dL
[2022-05-06 18:23] LABS: TSH w/ Reflex to FT4 2.12 uIU/mL (0.47-4.68)
[2022-05-06 18:27] LABS: Microalbumin Urine Random 1.4 mg/dL (0-1.6)
== END ==
PROVIDERS: PCP Family Medicine; Referring Provider Family Medicine; Visit Provider Family Medicine
DX: E78.5 Hyperlipidemia, unspecified (principal); M25.511 Pain in right shoulder; I10 Essential (primary) hypertension; M19.90 Unspecified osteoarthritis, unspecified site
CPT/HCPCS: 36415; 73030; 80053; 80061; 82043; 82570; 84443; 85025

== ENCOUNTER → 2022-09-21 16:50 | Outpatient (CLI) | payer MEDICARE, OTHER, SELFPAY ==
--- NOTE | 2022-09-21 16:52 | DI.RAD.S_ITS ---
PROCEDURE: XR KNEE LT 3V INDICATIONS: left knee pain, swelling TECHNIQUE: 3 views of the knee were acquired. COMPARISON: [facility], CR, XR KNEE LT 3V, 06/18/2021, 9:26. FINDINGS: Bones: No fractures or dislocations. No suspicious bony lesions. Tricompartmental arthritic change is present most severe medially and in the patellofemoral compartment. Prominent periarticular osteophytes are present. No erosions. Soft tissues: Mild joint effusion. No suspicious soft tissue calcifications. Chondrocalcinosis. IMPRESSION: Significant tricompartmental arthritic change. No visualized acute fracture or dislocation. However, if clinical concern and/or pain persist, short interval imaging followup in 7-10 days is recommended, as occult injury cannot be definitively excluded. Dictated by: Clarisse Donohue M.D. on 09/22/2022 at 8:28 Approved by: Clarisse Donohue M.D. on 09/22/2022 at 8:29
== END ==
PROVIDERS: PCP Family Medicine; Referring Provider Family Medicine; Visit Provider Family Medicine
DX: M25.562 Pain in left knee (principal)
CPT/HCPCS: 73562

== ENCOUNTER → 2022-10-11 10:54 | Outpatient (CLI) | payer MEDICARE, OTHER, SELFPAY ==
--- NOTE | 2022-10-11 10:55 | DI.RAD.S_ITS ---
PROCEDURE: XR RIBS LT 2V INDICATIONS: fall, left lateral rib pain TECHNIQUE: 2 views of the left ribs were acquired. COMPARISON: None. FINDINGS: Surgical changes and devices: Surgical clips noted in the left axilla Bones and chest wall: No fractures or dislocations. No suspicious bony lesions. Overlying soft tissues appear unremarkable. Lungs and pleura: The visualized lung appears clear. No pleural effusions or pneumothorax are visible. IMPRESSION: No evidence of rib fracture intrinsic osseous lesion Approved by: Shahid Cottrell M.D. on 10/11/2022 at 14:09
== END ==
PROVIDERS: PCP Family Medicine; Referring Provider Family Medicine; Visit Provider Family Medicine
DX: R07.81 Pleurodynia (principal)
CPT/HCPCS: 71100

== ENCOUNTER 2022-10-14 05:55 | Emergency (ER) | payer MEDICARE, OTHER, SELFPAY ==
[2022-10-14 06:06] VITALS: BP 202/93; PULSE 70; RESP 16; TEMP 36.4; O2SAT 98; BMI 27.4
--- NOTE | 2022-10-14 07:28 | ED.FALL ---
HPI - Fall General Chief Complaint: Fall Stated Complaint: pain in left breast area from fall last week Time Seen by Provider: 10/14/22 07:05 Source: patient Mode of arrival: Ambulatory Limitations: no limitations History of Present Illness HPI Narrative: Patient is an 87-year-old female who just under 1 week ago tripped and fell over her VAC at home and sustained a left rib injury. She went to go see her primary doctor. She had x-rays performed. She was told by her primary doctor that there were no fractures. She is been on Tylenol. She states that since that time she is had continued discomfort specifically with touching the area and moving and taking deep breaths. She denies any productive cough. No fevers. No new injuries have developed since the fall. She is here because last night she had a very difficult time getting comfortable to sleep. Related Data Home Medications Medication Instructions Recorded Confirmed multivitamin (Multiple Vitamins 1 tab PO QDAY ##0 08/26/10 10/07/22 tablet) vitamin E 268 mg (400 unit) capsule 800 iu PO QDAY ##0 08/26/10 10/07/22 ascorbic acid (vitamin C) 500 mg PO QDAY ##0 01/20/17 10/07/22 tablet Previous Rx's Medication Instructions Recorded nifedipine 30 mg tablet,extended See Rx Instructions .Route 02/15/22 release .COMPLEX #90 tabs lorazepam 0.5 mg tablet (Ativan) 0.5 mg PO BEDTIME PRN anxiety #10 02/18/22 tabs tolterodine 4 mg capsule,extended See Rx Instructions .Route 08/24/22 release 24 hr .COMPLEX #90 caps docusate sodium 100 mg capsule 100 mg PO BID PRN constipation #20 10/14/22 (Colace) caps hydrocodone 5 mg-acetaminophen 325 1 tab PO Q4-6H PRN pain #14 tabs 10/14/22 mg tablet Allergies Allergy/AdvReac Type Severity Reaction Status Date / Time ibuprofen [From ADVIL] Allergy Severe heart races Verified 09/21/22 15:49 latex Allergy Mild Blisters Verified 09/21/22 15:49 lisinopril AdvReac Intermediate leg cramps Verified 09/21/22 15:49 Review of Systems Constitutional Constitutional: Reports system reviewed and no additional complaints, except as documented Cardiovascular Cardiovascular: Reports system reviewed and no additional complaints, except as documented Respiratory Respiratory: Reports system reviewed and no additional complaints, except as documented Gastrointestinal Gastrointestinal: Reports system reviewed and no additional complaints, except as documented Integumentary/Breasts Skin/Breast: Reports system reviewed and no additional complaints, except as documented Hematologic/Lymphatic On Anticoagulants: No Patient History Medical History Anxiety Bilateral foot pain Chondrocalcinosis Chronic pain of left knee Essential hypertension (12/06/10) Fracture dislocation of shoulder joint Groin rash History of breast cancer Hyperlipidemia Hypertension Left ankle sprain Aquino's neuroma Osteoarthritis Osteoarthritis of right knee Rash of perineum Stress incontinence Surgical History History of total left hip arthroplasty Social History Smoking Status: Former smoker Smoking Status: Former smoker alcohol intake frequency: 0-2 drinks per day Substance Use Type: does not use Exam Initial Vital Signs Initial Vital Signs: Vital Signs Temperature 97.6 F 10/14/22 06:06 Pulse Rate 70 10/14/22 06:06 Respiratory Rate 16 10/14/22 06:06 Blood Pressure 202/93 H 10/14/22 06:06 Pulse Oximetry 98 10/14/22 06:06 Oxygen Delivery Method Room Air 10/14/22 06:06 Const General: cooperative and comfortable Chest Other: Patient does have discomfort the left lateral chest. There is bruising over the area. Her left breast is unremarkable. There is no crepitus. Resp Effort & Inspection: normal respiratory effort Auscultation: clear to auscultation bilaterally Cardio Rate: regular rate Rhythm: regular rhythm GI Inspection: normal to inspection and non-distended Palpation: soft and No tender Skin Other: Bruising to the left lateral chest. No crepitus felt. Extrem Other: Left shoulders unremarkable. Course Vital Signs Vital signs: Vital Signs - 8 hr 10/14/22 06:06 Temperature 97.6 F Pulse Rate 70 Respiratory Rate 16 Blood Pressure 202/93 H Pulse Oximetry 98 Oxygen Delivery Method Room Air MDM - Fall MDM Narrative Medical decision making narrative: Patient did have an x-ray last week which the patient reported showed no fractures. I have low suspicion that she is pneumonia today. Her lungs are clear. She is afebrile. Does not have hypoxia. Does not have a productive cough. She does have bruising over her left lateral chest. No crepitus. I had a long discussion with her regarding the fact that there may be a fracture that was just not picked up on the x-ray but it was not displaced. I do not feel that there was a need to repeat her chest x-ray today. Plan will be is to provide her with stronger pain medication that she could use as tolerated. We discussed the importance of taking deep breaths. We discussed specific return precautions. She expressed understanding and agreement. Discharge Plan Departure Patient Disposition: Home Clinical Impression: Rib pain on left side, Contusion of skin Instructions: DI for Rib Contusion Activity Restrictions/Additional Instructions: It is important that you occasionally take deep breaths. You may have to support the left side of your chest while doing this. Use the pain medication as needed. Return to the emergency department for new or worsening symptoms to include fevers, productive cough for worsening problems breathing. Prescriptions: New docusate sodium [Colace] 100 mg capsule 100 mg PO BID PRN (Reason: constipation) Qty: 20 0RF hydrocodone-acetaminophen 5-325 mg tablet 1 tab PO Q4-6H PRN (Reason: pain) Qty: 14 0RF No Action vitamin E 400 UNIT capsule 800 iu PO QDAY Qty: 0 multivitamin [Multiple Vitamins] 1 EACH tablet 1 tab PO QDAY Qty: 0 ascorbic acid (vitamin C) 500 mg Tablet PO QDAY Qty: 0 nifedipine 30 mg tablet extended release See Rx Instructions .ROUTE .COMPLEX Qty: 90 3RF Dose Instruction: TAKE 1 TABLET DAILY Rx Instructions: TAKE 1 TABLET DAILY tolterodine 4 mg capsule,extended release 24hr See Rx Instructions .ROUTE .COMPLEX Qty: 90 3RF Dose Instruction: TAKE 1 CAPSULE DAILY Rx Instructions: TAKE 1 CAPSULE DAILY lorazepam [Ativan] 0.5 mg tablet 0.5 mg PO BEDTIME PRN (Reason: anxiety) Qty: 10 0RF Referrals: Denis Lim MD [Primary Care Provider] - Stand Alone Forms: Patient Portal/API
[2022-10-14 07:53] VITALS: BP 191/90; PULSE 68; RESP 18; O2SAT 95
== END 2022-10-14 07:55 | disposition home or self-care (01) ==
PROVIDERS: Emergency Provider Emergency Medicine; PCP Family Medicine
DX: S20.212A Contusion of left front wall of thorax, initial encounter (principal); W01.0XXA Fall on same level from slipping, tripping and stumbling without subsequent striking against object, initial encounter; Y92.009 Unspecified place in unspecified non-institutional (private) residence as the place of occurrence of the external cause
CPT/HCPCS: 99281; 99283

== ENCOUNTER → 2022-11-10 09:54 | Outpatient (CLI) | payer MEDICARE, OTHER, SELFPAY ==
--- NOTE | 2022-11-10 | DI.MG.S_ITS ---
BILATERAL DIGITAL SCREENING MAMMOGRAM 3D/2D WITH CAD: 11/10/2022 CLINICAL: Routine screening. Personal history of left breast cancer. Family history of breast cancer. Comparison is made to exams dated: 11/05/2021 mammogram, 10/28/2020 mammogram, 10/25/2019 mammogram, and 10/11/2018 mammogram - [facility]. There are scattered areas of fibroglandular density in both breasts (category b / 25%-50% glandular tissue). Current study was also evaluated with a Computer Aided Detection (CAD) system. There are benign vascular calcifications in both breasts. There also are benign post operative findings in the left breast. No significant masses, calcifications, or other findings are seen in either breast. There has been no significant interval change. IMPRESSION: BENIGN There is no mammographic evidence of malignancy. A 1 year screening mammogram is recommended. This exam was interpreted at Station ID: [id number]. NOTE: For mammograms, a report in lay terms will be sent to the patient. Approximately 15% of breast malignancies will not be visualized mammographically. In the management of a palpable breast mass, a negative mammogram must not discourage biopsy of a clinically suspicious lesion. Electronically Signed By: Dwaine calloway/james:11/10/2022 17:58:27 letter sent: Normal Exam ACR BI-RADS Category 2: Benign Finding(s) 3342F
== END ==
PROVIDERS: PCP Family Medicine; Referring Provider Family Medicine; Visit Provider Family Medicine
DX: Z12.31 Encounter for screening mammogram for malignant neoplasm of breast (principal); Z85.3 Personal history of malignant neoplasm of breast; Z80.3 Family history of malignant neoplasm of breast
CPT/HCPCS: 77063; 77067

== ENCOUNTER → 2023-01-03 11:25 | Outpatient (CLI) | payer MEDICARE, OTHER, SELFPAY ==
--- NOTE | 2023-01-03 11:27 | DI.RAD.S_ITS ---
PROCEDURE: XR CHEST 2V INDICATIONS: chest discomfort TECHNIQUE: 2 views of the chest were acquired. COMPARISON: [facility], , CHEST 2 VIEW, 12/06/2007, 15:36. FINDINGS: Surgical changes and devices: Left axillary surgical clips. Lungs and pleura: Lungs are clear. No pleural effusions or pneumothorax. Mediastinum: Mediastinal contours are normal. Heart size is normal. Bones and chest wall: No suspicious bony abnormalities. Soft tissues appear unremarkable. IMPRESSION: No acute cardiopulmonary abnormality is seen. Dictated by: Axel Teague M.D. on 01/03/2023 at 12:14 Approved by: Axel Teague M.D. on 01/03/2023 at 12:14
[2023-01-03 12:54] LABS: Add Manual Diff / Slide Review NO; Basophils Absolute Auto 0 /uL (0-100); Basophils Percent Auto 0.5 % (0-2); Eosinophils Absolute Auto 100 /uL (0-450); Eosinophils Percent Auto 1.5 % (2-4); Hematocrit 41.2 % (36-46); Hemoglobin 14.2 g/dL (12.0-16.0); Lymphocytes Absolute Auto 1200 /uL (1100-4500); Lymphocytes Percent Auto 24.5 % (25-40); Mean Corpuscular HGB Conc 34.4 % (30-36); Mean Corpuscular Hemoglobin 31.7 PG (26-34); Monocytes Absolute Auto 500 /uL (0-900); Monocytes Percent Auto 9.7 % (3-14); Neutrophils Absolute Auto 3100 /uL (1500-7000); Neutrophils Percent Auto 63.8 % (50-75); Platelet Count 263 X10^3/uL (150-400); Red Blood Cell Count 4.47 X10^6/uL (4.0-5.2); Red Cell Distribution Width 13.1 % (11.6-14.8); White Blood Cell Count 4.8 X10^3/uL (4.5-11.0)
[2023-01-03 13:32] LABS: Alanine Aminotransferase 21 IU/L (<35); Albumin 4.2 g/dL (3.5-5.0); Albumin Globulin Ratio 1.3 (1.0-2.8); Alkaline Phosphatase 82 U/L (38-126); Aspartate Aminotransferase 48 IU/L (14-36); BUN Creatinine Ratio 28.6 (6-22); Bilirubin Total 0.6 mg/dL (0.2-1.3); Blood Urea Nitrogen 20 mg/dL (7-17); Calcium 9.7 mg/dL (8.4-10.2); Carbon Dioxide 27 mmol/L (22-32); Chloride 103 mmol/L (98-107); Estimated Glomerular Filt Rate > 60 mL/min (>60); Globulin 3.3 g/dL (1.7-4.1); Glucose 96 mg/dL (80-110); HEMOLYSIS 23 (0-50); Potassium 4.1 mmol/L (3.4-5.1); Sodium 139 mmol/L (137-145); Total Protein 7.5 g/dL (6.3-8.2)
== END ==
PROVIDERS: PCP Family Medicine; Referring Provider Family Medicine; Visit Provider Family Medicine
DX: M19.90 Unspecified osteoarthritis, unspecified site (principal); I10 Essential (primary) hypertension; R07.89 Other chest pain
CPT/HCPCS: 71046; 80053; 85025

== ENCOUNTER → 2023-02-28 10:38 | Outpatient (CLI) | payer MEDICARE, OTHER, SELFPAY ==
--- NOTE | 2023-02-28 23:40 | DI.NM.S_ITS ---
DATE OF SERVICE: 02/28/2023 PROCEDURE PERFORMED: Exercise treadmill stress and rest myocardial perfusion imaging with gating to assess ejection fraction and regional wall motion. ORDERING PROVIDER: Denis Lim MD. INDICATIONS: The patient is an 87-year-old female with exertional chest discomfort. CARDIAC STRESS: The patient was able to exercise for 3 minutes, 53 seconds on a standard Seferino protocol, suggesting average exercise capacity with an HARESH of 0%. She had a normal hemodynamic response and denied any chest discomfort, lightheadedness, or chest tightness. Her resting ECG showed sinus rhythm with an incomplete RBBB with associated ST-segment abnormalities. With stress, there were no significant ST- segment shifts but she developed increasingly frequent short runs of probable atrial tachycardia with rates up to a maximum of 174 BPM. These short, nonsustained runs of atrial tachycardia persisted into recovery but improved by 5 minutes into recovery with only occasional PACs. At 2 minutes, 50 seconds of exercise, at a heart rate of 127 BPM, 25.5 millicuries of technetium-99m Myoview was injected and she was imaged 15 minutes later using a gated SPECT acquisition protocol. Earlier in the day while at rest, she had been injected with 12.4 millicuries of technetium-99m Myoview and was imaged 20 minutes later, again using a gated SPECT acquisition protocol. FINDINGS: 1. Raw data: There is fairly good myocardial tracer uptake. Lung/heart ratio is normal at 0.15. While the TID ratio is borderline elevated at 1.30, this is not evident visually and thus is nonspecific. 2. Quantitated gated SPECT: Post-stress ejection fraction is estimated at 90%, likely an overestimate due to small left ventricular volumes. There are no focal wall motion abnormalities. Resting ejection fraction is 87% with a resting end-diastolic volume of 63 mL. 3. Myocardial perfusion imaging: Post-stress supine images show a fairly normal myocardial perfusion pattern, supported by normal perfusion imaging in the prone position without any significant perfusion defects. The resting images show a similar perfusion pattern without any obvious areas of improvement. IMPRESSION: 1. Normal myocardial perfusion study for ischemia. 2. No evidence of myocardial ischemia or previous myocardial infarction. 3. High normal left ventricular systolic function without any focal wall motion abnormality and relatively small left ventricular volumes. 4. Average exercise capacity without angina or ECG evidence of ischemia but with increasingly frequent runs of nonsustained SVT with stress, likely atrial tachycardia, but without associated symptoms. 5. Compared to the previous myocardial perfusion study of 12/10/2003, a similar perfusion pattern was seen. The previous ejection fraction was estimated at 76% and perfusion imaging was normal, suggesting the absence of any significant change although SVT was not reported. Tiara Angela - DYLON/praneeth/TARA doc#: [id number]/job#: [id number] dd: 02/28/2023 16:32:00 dt: 02/28/2023 23:22:00 DICTATING /COPIES TO: Curry Eddy MD; Denis Lim, COPIES MNE: TARSAH;
== END ==
PROVIDERS: PCP Family Medicine; Referring Provider Family Medicine; Visit Provider Family Medicine
DX: R07.89 Other chest pain (principal); I10 Essential (primary) hypertension
CPT/HCPCS: 78452; 93017; A9502

== ENCOUNTER → 2023-05-30 11:10 | Outpatient (CLI) | payer MEDICARE, OTHER, SELFPAY ==
--- NOTE | 2023-05-30 11:11 | DI.RAD.S_ITS ---
PROCEDURE: XR CHEST 2V INDICATIONS: Cough TECHNIQUE: 2 views of the chest were acquired. COMPARISON: [facility], CR, XR CHEST 2V, 01/03/2023, 11:38. FINDINGS: Surgical changes and devices: Surgical clips are noted in left axilla Lungs and pleura: Subtle opacity is seen in right midlung field concerning for subtle right upper lobe infiltrate versus atelectasis. Left lung is clear. No pleural effusions or pneumothorax. Mediastinum: Mediastinal contours are normal. Heart size is normal. Bones and chest wall: No suspicious bony abnormalities. Soft tissues appear unremarkable. IMPRESSION: Finding is concerning for small right upper lobe infiltrate/atelectasis. No pleural effusion or pneumothorax. Dictated by: Benito Alston M.D. on 05/30/2023 at 15:38 Approved by: Benito Alston M.D. on 05/30/2023 at 15:44
== END ==
PROVIDERS: PCP Family Medicine; Referring Provider Family Medicine; Visit Provider Family Medicine
DX: R05.1 Acute cough (principal)
CPT/HCPCS: 71046

== ENCOUNTER → 2023-06-08 08:54 | Outpatient (CLI) | payer MEDICARE, OTHER, SELFPAY ==
[2023-06-08 09:25] LABS: Add Manual Diff / Slide Review NO; Basophils Absolute Auto 0 /uL (0-100); Basophils Percent Auto 0.6 % (0-2); Eosinophils Absolute Auto 100 /uL (0-450); Eosinophils Percent Auto 1.8 % (2-4); Hematocrit 40.7 % (36-46); Hemoglobin 13.8 g/dL (12.0-16.0); Lymphocytes Absolute Auto 1900 /uL (1100-4500); Lymphocytes Percent Auto 33.5 % (25-40); Mean Corpuscular HGB Conc 33.8 % (30-36); Mean Corpuscular Hemoglobin 30.6 PG (26-34); Mean Corpuscular Volume 90.5 fL (80-100); Monocytes Absolute Auto 600 /uL (0-900); Monocytes Percent Auto 10.7 % (3-14); Neutrophils Absolute Auto 3100 /uL (1500-7000); Neutrophils Percent Auto 53.4 % (50-75); Platelet Count 310 X10^3/uL (150-400); Red Blood Cell Count 4.49 X10^6/uL (4.0-5.2); Red Cell Distribution Width 13.3 % (11.6-14.8); White Blood Cell Count 5.7 X10^3/uL (4.5-11.0)
[2023-06-08 09:41] LABS: Creatinine Urine Random 224.7 mg/dL
[2023-06-08 09:46] LABS: Microalbumi Creatinin Ratio Ur 16.9 ug/mg CR (<30); Microalbumin Urine Random 3.8 mg/dL (0-1.6)
[2023-06-08 10:14] LABS: Alanine Aminotransferase 18 IU/L (<35); Albumin Globulin Ratio 1.3 (1.0-2.8); Alkaline Phosphatase 69 U/L (38-126); Aspartate Aminotransferase 26 IU/L (14-36); BUN Creatinine Ratio 18.1 (6-22); Bilirubin Total 0.8 mg/dL (0.2-1.3); Blood Urea Nitrogen 15 mg/dL (7-17); Calcium 9.8 mg/dL (8.4-10.2); Carbon Dioxide 31 mmol/L (22-32); Chloride 105 mmol/L (98-107); Cholesterol 211 mg/dL (140-199); Estimated Glomerular Filt Rate > 60 mL/min (>60); Globulin 3.2 g/dL (1.7-4.1); Glucose 101 mg/dL (80-110); HDL Cholesterol 64 mg/dL (40-60); HEMOLYSIS < 15 (0-50); LDL Cholesterol Calculated 125 mg/dL (<100); Potassium 4.4 mmol/L (3.4-5.1); Sodium 141 mmol/L (137-145); Total Protein 7.2 g/dL (6.3-8.2); Triglycerides 111 mg/dL (35-150)
[2023-06-08 10:28] LABS: TSH w/ Reflex to FT4 2.87 uIU/mL (0.47-4.68)
[2023-06-09 08:50] LABS: Apolipoprotein B 90 mg/dL (<90)
[2023-06-10 14:20] LABS: Hep C Virus Ab w/Reflex Quant NEGATIVE s/c (NEGATIVE)
== END ==
PROVIDERS: PCP Family Medicine; Referring Provider Family Medicine; Visit Provider Family Medicine
DX: E78.5 Hyperlipidemia, unspecified (principal); M19.90 Unspecified osteoarthritis, unspecified site; I10 Essential (primary) hypertension; M54.50 Low back pain, unspecified; G89.29 Other chronic pain
CPT/HCPCS: 36415; 80053; 80061; 82043; 82172; 82570; 84443; 85025; 86803

== ENCOUNTER → 2024-01-03 13:46 | Outpatient (CLI) | payer MEDICARE, OTHER, SELFPAY ==
--- NOTE | 2024-01-03 13:48 | DI.RAD.S_ITS ---
PROCEDURE: XR KNEE RT 3V INDICATIONS: fall. right knee pain and swelling TECHNIQUE: 3 views of the knee were acquired. COMPARISON: [facility], CR, XR KNEE LT 3V, 09/21/2022, 16:47. [facility], CR, XR KNEE LT 3V, 06/18/2021, 9:26. [facility], CR, XR KNEE RT 3V, 03/27/2020, 16:06. FINDINGS: Mild osseous demineralization. Possible minimally displaced, transversely oriented fracture at medial tibial plateau extending to the tibial eminence. Tricompartmental chondrocalcinosis. Moderate joint effusion. Soft tissue edema overlying the prepatellar/infrapatellar region. IMPRESSION: 1. Possible minimally displaced Schatzker type [address] medial tibial plateau fracture. CT or MRI of the knee without contrast would be recommended for confirmation. 2. Prepatellar/infrapatellar subcutaneous edema, likely representing a hematoma in the context of trauma. Dictated by: Gian Flores M.D. on 01/03/2024 at 16:56 Approved by: Gian Flores M.D. on 01/03/2024 at 17:01
--- NOTE | 2024-01-03 13:48 | DI.RAD.S_ITS ---
PROCEDURE: XR ELBOW LT MIN 3V INDICATIONS: left elbow pain, fall TECHNIQUE: 3 views of the elbow were acquired. COMPARISON: None. FINDINGS: Diffuse osseous demineralization. Please note that the provided images do not represent a true lateral view. Within this limitation there is no acute fracture or dislocation. There is a small joint effusion. The joint alignment is maintained. Chondrocalcinosis is present at the radiocapitellar , ulnotrochlear, as well as the proximal radioulnar joint spaces. Enthesopathy is present at the epicondyles. 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 If there is persistent concern for an underlying fracture with a trauma history, consider a CT of the elbow without contrast for further evaluation. Dictated by: Gian Flores M.D. on 01/04/2024 at 9:44 Approved by: Gian Flores M.D. on 01/04/2024 at 9:51
--- NOTE | 2024-01-03 13:48 | DI.RAD.S_ITS ---
PROCEDURE: XR ANKLE RT MIN 3V INDICATIONS: fall. Right ankle pain and swelling TECHNIQUE: 3 views of the ankle were acquired. COMPARISON: [facility], , ANKLE 3 VIEWS LEFT, 01/20/2017, 12:11., right foot x-ray 08/15/2017 comparison not available FINDINGS: Acute on chronic, minimally displaced Carlton A distal fibular fracture with adjacent soft tissue edema around the lateral malleolus. 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 Moderate tibiotalar joint effusion. Scattered midfoot and mild tibiotalar osteoarthritis. Achilles calcaneal enthesopathy with mild thickening of the Achilles tendon contour, which can be seen with tendinosis. IMPRESSION: 1. Acute on chronic minimally displaced Carlton a distal fibular fracture. 2. 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 Dictated by: Gian Flores M.D. on 01/04/2024 at 8:53 Approved by: Gian Flores M.D. on 01/04/2024 at 9:44
== END ==
PROVIDERS: PCP Family Medicine; Referring Provider Family Medicine; Visit Provider Family Medicine
DX: S82.831A Other fracture of upper and lower end of right fibula, initial encounter for closed fracture (principal); M25.571 Pain in right ankle and joints of right foot; M25.522 Pain in left elbow; M25.561 Pain in right knee; M11.261 Other chondrocalcinosis, right knee; R60.9 Edema, unspecified; M25.422 Effusion, left elbow; S82.51XS Displaced fracture of medial malleolus of right tibia, sequela
CPT/HCPCS: 73080; 73562; 73610

== ENCOUNTER → 2024-01-04 15:40 | Outpatient (CLI) | payer MEDICARE, OTHER, SELFPAY ==
--- NOTE | 2024-01-04 15:41 | DI.CT.S_ITS ---
PROCEDURE: CT FACIAL BONES WO CON INDICATIONS: fall. pain of superior left orbit TECHNIQUE: Noncontrast 2.5 mm thick axial images acquired from the mandible through the frontal sinuses, with coronal and sagittal reformatting. For radiation dose reduction, the following was used: automated exposure control, adjustment of mA and/or kV according to patient size. COMPARISON: None. FINDINGS: Image quality: Excellent. Bones and teeth: In this patient with this given history, scrutiny is given to the left superior orbit. No displaced fracture can be seen at this site. Normal appearing suture lines are seen. Sinus gill show no fracture or deformity. Nasal bones and septum are intact. Visualized portions of the mandible demonstrate no fractures or subluxation. Zygomatic arches are intact. Pterygoid plates are intact. Visualized portions of the skull base and auditory canals are intact. Sinuses: The ostiomeatal complexes are patent, yet they are constitutionally narrowed, with bilateral Jolanta cells. No significant focal mucosal thickening can be seen. No abnormal mastoid air cell fluid can be seen. Soft tissues: Mild left periorbital soft tissue swelling can be seen, as on series 3, image 70. Vascular: Visualized vascular structures appear normal in the absence of contrast. Bony vascular foramina and canals are intact. IMPRESSION: Left periorbital soft tissue swelling seen, without an associated displaced regional fracture. Dictated by: Bruce Coffman M.D. on 01/04/2024 at 16:19 Approved by: Bruce Coffman M.D. on 01/04/2024 at 16:20
== END ==
PROVIDERS: PCP Family Medicine; Referring Provider Family Medicine; Visit Provider Family Medicine
DX: S00.83XA Contusion of other part of head, initial encounter (principal); W19.XXXA Unspecified fall, initial encounter
CPT/HCPCS: 70486